=== PATIENT | female | born 1945 | race Caucasian/White ===

== ENCOUNTER 2017-08-17 09:19 | Day surgery (SDC) | payer MEDICARE ==
[~2017-08-17 09:19] MED LIST: Buffered Lidocaine 0.9% SYRIN* 5 ML/SYR SYRINGE INTRADERM ONE; DiMENhydriNATE IV* 50 MG/ML VIAL IV PUSH PRN; Famotidine TAB* 20 MG PO ONE; Gabapentin CAP(*) 300 MG PO ONE; Morphine INJ* 2 MG/ML 1 ML CARPUJECT IV PRN; Naloxone* 0.4 MG/ML 1 ML VIAL IV PRN; PROCHLORPERAZINE INJ 5 MG/ML 2 ML VIAL IV PRN; fentaNYL* 50 MCG/ML 2 ML VIAL (100 MCG VIAL) IV PRN; oxyCODONE/Acetamin 5/325 MG* TAB PO PRN
[2017-08-17] MEDS ORDERED: fentaNYL* 50 MCG/ML 2 ML VIAL (100 MCG VIAL) ONE (09:30)
[2017-08-17] MEDS ORDERED: Gabapentin CAP(*) 300 MG ONE (09:30)
[2017-08-17] MEDS ORDERED: Midazolam* 1 MG/ML 5 ML VIAL (5 MG) ONE (09:30)
[2017-08-17] MEDS ORDERED: Clindamycin 900 MG IVPREMIX(* 900 MG/50 ML SDV IV ONE (09:31)
[2017-08-17] MEDS ORDERED: Famotidine TAB* 20 MG ONE (09:31)
[2017-08-17] MEDS ORDERED: Buffered Lidocaine 0.9% SYRIN* 5 ML/SYR SYRINGE ONE (09:31)
[2017-08-17] MEDS ORDERED: EPINEPHRINE 1 MG/ML 1 ML VIAL ONE (11:21)
[2017-08-17] MEDS ORDERED: Bupivacaine 0.25% SDV* 30 ML ONE (11:21)
[2017-08-17] MEDS ORDERED: Phenylephrine INJ* 10 MG/ML 1 ML VIAL (10 MG) ONE (13:00)
[2017-08-17] MEDS ORDERED: Propofol* 10 MG/ML 20 ML BTL IV PUSH ONE (13:00)
[2017-08-17] MEDS ORDERED: Ondansetron INJ* 2 MG/ML VIAL ONE (13:00)
[2017-08-17] MEDS ORDERED: Dexamethasone IV* 4 MG/ML 1 ML (4 MG) ONE (13:00)
[2017-08-17] MEDS ORDERED: Ketorolac INJ* 30 MG/ML 1 ML VIAL ONE (13:00)
[2017-08-17] MEDS ORDERED: Lidocaine 2% PF * 5 ML VIAL ONE (13:00)
[2017-08-17 17:09] VITALS: BP 159/78
--- NOTE | 2017-08-23 08:16 | OP ---
DR. YAP - PLEASE REIVEW. BLANKS DUE TO EXTREME VOICE DISTORTION DATE OF OPERATION: 08/17/17 - SDS DATE OF : 45 SURGEON: Mike Yap MD CRM DYNAMICS DEVELOPER: DERIK Reyez. A physician assistant sales director was required for the length of the procedure for positioning, assistance with instrumentation, and closure. ANESTHESIOLOGIST: ANESTHESIA: Marilu block anesthesia. PRE-OP DIAGNOSES: 1. Right shoulder rotator cuff tendon tears, massive, retracted, supraspinatus , infraspinatus. 2. Right shoulder subacromial impingement and bursitis. 3. Right shoulder acromioclavicular joint arthritis. 4. Right shoulder loose body. POST-OP DIAGNOSES: 1. Right shoulder rotator cuff tendon tears, massive, retracted, supraspinatus and infraspinatus. 2. Right shoulder subacromial impingement and bursitis. 3. Right shoulder acromioclavicular joint arthritis. 4. Right shoulder proximal biceps long head partial thickness tears. 5. Right shoulder capsulitis. OPERATIVE PROCEDURE: 1. Examination of right shoulder. 2. Manipulation under anesthesia, right shoulder. 3. Right shoulder arthroscopic rotator cuff tendon repair, supraspinatus, infraspinatus, double row. 4. Right shoulder arthroscopic subacromial decompression. 5. Right shoulder arthroscopic distal clavicle resection. 6. Right shoulder arthroscopic limited debridements including release of biceps tendon, debridement of superior labrum, debridement of rotator cuff interval tissue. ANTIBIOTICS: Ancef 2 g IV. IV FLUIDS: 2000 cc crystalloid. URINE OUTPUT: 600 cc. XLKG-GZ-[id number] TIME: 130 minutes. SPECIMEN: None. IMPLANTS: Mitek Gryphon 2 anchors each, 5.5 mm, triple loaded, as well there was 1 knotless Mitek Gryphon anchor, 5.5 mm in size. IRRIGATION: 17 bags, each 3 L for a total of 51 L. COMPLICATIONS: None. ESTIMATED BLOOD LOSS: Minimal. 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 Approximately a year ago, the pain worsened and the patient was over the fall and winter seen by therapist, Nancie Gan. The patient's pain then worsened in April and then she was treated with cortisone injection by Dr. Cody Jimenez. On 07/04/17, the patient had a specific injury while doing yoga. The patient's shoulder pain and weakness increased and she presented to clinic to me after having MRI of the right shoulder. MRI showed retracted tears of the supraspinatus, infraspinatus, all the way to the glenoid. Mild muscle atrophy. Elevation of the humeral head on both x-ray and MRI imaging. A loose body was present about the coracoid. The patient had no complaints of mechanical locking of the shoulder consistent with a symptomatic loose body. To assess the patient's MRI findings, I believe , stated that it was a positive thing that the patient's most severe symptoms , abduct and forward flex [address], she only had . Discussed complications including bleeding, infection, nerve or blood vessel injury, shoulder pain, stiffness, osteoarthritis, rotator cuff retear. DESCRIPTION OF PROCEDURE: The patient was taken to the operating room, placed supine on operating room table. The patient was sedated and intubated. The patient was put in the lateral decubitus position. A boateng bag was placed. ____ _ anesthesia. The patient is forward flexing passively to 180 and external rotation was 90, but her internal rotation was limited. degrees of internal rotation. appropriate amount of forward flexion. Prepped with ChloraPrep, draped. Surgical time-out. I entered the shoulder with a spinal needle from posterior. Injected cc of normal saline. I established a glenohumeral joint portal. Started arthroscopy. at least grade 1 in the shoulder, but no articular cartilage tear encountered . The patient clearly had full thickness tear of supraspinatus and infraspinatus. The patient had some inflamed tissue in the rotator cuff interval. The patient had a very tendinotic biceps tendon groove, partial thickness tears in the . I established anterior portal under direct visualization. I used a topic shaver to , this improved visualization. The biceps tendon is clearly, I believe, needing to be treated. pathology as we, . I fully debrided the loose body, but did not have . lateral visualization. . Debrided and . I grasped, I was able to bring tendon to bone nicely without significant tension. I placed Arthrex plastic cannula anteriorly. I placed one . I debrided the humeral head, debrided . I debrided the humeral head and debrided. With the subacromial decompression __ ___. I placed 8 horizontal mattress stitches in this and I used a combination of tie attempted a lateral row anchor lateral row anchor sutures and medial row. debrided bursitic tissue with VAPR. DISPOSITION: . She will see me in clinic in 10 to 14 days postoperatively for wound check and removal of stitches. [id number] #: [id number] VANESSA
== END 2017-08-17 17:42 | disposition home or self-care (01) ==
LOC: OR 09:19
PROVIDERS: ATTEND Orthopaedic Surgery
DX: S46.011A Strain of muscle(s) and tendon(s) of the rotator cuff of right shoulder, initial encounter (principal); M75.41 Impingement syndrome of right shoulder; M19.011 Primary osteoarthritis, right shoulder; S46.111A Strain of muscle, fascia and tendon of long head of biceps, right arm, initial encounter; X50.0XXA Overexertion from strenuous movement or load, initial encounter; Y93.B9 Activity, other involving muscle strengthening exercises; Y92.9 Unspecified place or not applicable; M77.8 Other enthesopathies, not elsewhere classified; I10 Essential (primary) hypertension; R00.2 Palpitations; I47.1 Supraventricular tachycardia; E78.5 Hyperlipidemia, unspecified; I42.8 Other cardiomyopathies; G89.18 Other acute postprocedural pain
CPT/HCPCS: A9270-GY; J1100; J1885; J2250; J2405; J2704; J3010

== ENCOUNTER 2017-08-19 06:44 | Observation (INO) | payer MEDICARE ==
[2017-08-19] MEDS ORDERED: NS 0.9% 1000 ML* 1,000 ML IV ONE (07:32)
[2017-08-19 07:49] LABS: ABS Basophils 0.1 10^3/ul (0-0.2); ABS Eosinophils 0.2 10^3/ul (0-0.6); ABS Lymphocytes 3.1 10^3/ul (1.0-4.8); ABS Monocytes 0.8 10^3/ul (0-0.8); ABS Neutrophils 7.8 10^3/ul (1.5-7.7); ABS Nucleated RBC 0 10^3/ul; Eosinophil % 1.4 % (0-6); Hematocrit 30 % (35-47); Hemoglobin 10.4 g/dl (12.0-16.0); Lymphocyte % 25.8 % (25-47); Mean Corpuscular HGB Conc 35 g/dl (31-36); Mean Corpuscular Hemoglobin 32 pg (27-31); Mean Corpuscular Volume 93 fL (80-97); Mean Platelet Volume 6.8 um3 (7.4-10.4); Nucleated Red Blood Cells % 0; Platelet Count 252 10^3/ul (150-450); Red Blood Count 3.23 10^6/ul (4.0-5.4); Red Cell Distribution Width 13 % (10.5-15)
[2017-08-19 08:11] LABS: INR 0.86 (0.77-1.02)
--- NOTE | 2017-08-19 08:51 | RAD ---
INDICATION: Postop 3 days following RIGHT shoulder surgery. Unable to raise arm above head. History of cardiovascular disease. COMPARISON: No relevant prior exams available on the [facility] PACS for comparison. TECHNIQUE: Dual energy PA and routine lateral views of the chest were obtained. REPORT: RIGHT larger than LEFT dependent pleural effusions. Proportional basilar atelectasis. Diffuse prominence of interstitial markings and peripheral thickened interlobular septa. Negative for pneumothorax. Upper normal heart size. Mildly ill-defined central pulmonary vasculature. Probable postsurgical change of resection of the distal RIGHT clavicle with overlying soft tissue swelling given the provided history. IMPRESSION: Interstitial pulmonary edema with small RIGHT larger than LEFT dependent pleural effusions.
[2017-08-19 09:17] LABS: EGFR Non-African American 77.1 (>60)
[2017-08-19] MEDS ORDERED: Iodixanol* (CONTRAST) 320 MG/ML 100 ML SDV IV ONE (09:18)
--- NOTE | 2017-08-19 10:00 | RAD ---
INDICATION: Difficulty breathing. History of breast carcinoma. COMPARISON: August 19, 2017 chest radiograph TECHNIQUE: Multidetector CT images were obtained from the lung apices to the upper abdomen with 62 mL Visipaque 320 IV contrast. Pulmonary angiogram protocol. Multiplanar reformation including with maximum intensity projection. REPORT: Small bilateral dependent pleural effusions with proportional basilar atelectasis. Thickened peripheral interlobular septa at the lower lung zones. Negative for thoracic lymphadenopathy. Mild cardiomegaly. Negative for pericardial effusion. Normal diameter thoracic aorta. Negative for aortic dissection. No filling defects are identified from the main to the subsegmental pulmonary arteries to indicate presence of a pulmonary embolism. Unremarkable images through the upper abdomen. Postsurgical change at the RIGHT shoulder including resection of the distal clavicle and surgical anchor from rotator cuff repair. Soft tissue edema about the RIGHT shoulder. Subcutaneous emphysema at the level of the subacromial subdeltoid bursa. Glenohumeral joint effusion. Post LEFT mastectomy and implant reconstruction. Negative for suspicious focal osseous lesions. IMPRESSION: 1. Negative for pulmonary embolism. 2. Interstitial pulmonary edema. Small bilateral dependent pleural effusions with proportional basilar atelectasis. 3. Postsurgical change at the RIGHT shoulder including resection of the distal clavicle and surgical anchor from rotator cuff repair. Soft tissue edema about the RIGHT shoulder. Subcutaneous emphysema at the level of the subacromial subdeltoid bursa. Glenohumeral joint effusion.
[2017-08-19] MEDS ORDERED: Furosemide IV* 10 MG/ML VIAL (40 MG) IV ONE (10:11)
[2017-08-19] MEDS ORDERED: diPHENhydraMINE PO* 25 MG PO PRN (11:13)
[2017-08-19] MEDS ORDERED: Magnesium Sulfate 2 GM IV* 2 GM/50 ML BAG IVPB ONE (11:19)
[2017-08-19] MEDS ORDERED: Acetaminophen TAB* 325 MG PO PRN (11:21)
[2017-08-19] MEDS ORDERED: Ondansetron INJ* 2 MG/ML VIAL IV PRN (11:40)
[2017-08-19] MEDS ORDERED: Ondansetron ODT TAB* 4 MG ONE (11:41)
[2017-08-19] MEDS ORDERED: Ondansetron ODT TAB* 4 MG PO ONE (11:42)
[2017-08-19] MEDS ORDERED: oxyCODONE/Acetamin 5/325 MG* TAB PO PRN (12:30)
[2017-08-19] MEDS: Aspirin TAB* 325 MG PO SCH (12:32)
[2017-08-19] MEDS: Atenolol TAB* 25 MG PO SCH ×2 (12:32→20:51)
[2017-08-19] MEDS: Enoxaparin(*) 40 MG/0.4 ML SYR SUBCUT SCH (12:33)
[2017-08-19] MEDS: FISH OIL PO SCH ×2 (12:33→22:08)
[2017-08-19] MEDS: FATTY ACIDS PO SCH ×2 (12:33→22:08)
[2017-08-19] MEDS: [UNRECOGNIZED DRUG - OTHER] PO SCH (12:33)
[2017-08-19] MEDS: OMEGA PO SCH ×2 (12:33→22:08)
[2017-08-19] MEDS: GLUCOSAMINE PO SCH (12:33)
[2017-08-19] MEDS: CHONDROITIN PO SCH (12:33)
[2017-08-19] MEDS: Furosemide IV* 10 MG/ML 2 ML VIAL (20 MG) IV SCH (14:32)
--- NOTE | 2017-08-19 15:51 | HP ---
HISTORY AND PHYSICAL: DATE OF ADMISSION: 08/19/17 ADMITTING PROVIDER: Jose Manuel Goodwin MD PRIMARY CARE PROVIDER: Dr. Gilbert Hooks. OUTPATIENT METAL SPRAYER PRODUCTION: Dr. Rosa Guy. CHIEF COMPLAINT: Shortness of breath. HISTORY OF PRESENT ILLNESS: Leeann Steward is a 72-year-old female with past medical history of left ventricular outflow tract obstruction; osteoporosis; diverticulitis; DCIS; hypertension; right rotator cuff tear, status post recent repair with Dr. Ivey on 08/17/17, two days prior to admission. She was in her usual state of present health. The night prior to admission when she lied down, she felt short of breath, could not take a deep breath, felt like she had slight wheeze, had a desire to cough, but when she tried, it was not productive. She felt a slight "squeaking" sound in her lungs with deep breath. She eventually would try to sit up in the chair given her recent surgery but the sensation continued and presented to the [facility] for further evaluation. She was found to have an elevated BNP of 825 and chest x-ray with interstitial pulmonary edema, small, right greater than left pleural effusion. She has got a D-dimer elevation of 334. So, a CT chest angiogram was performed by emergency room which did not show any evidence of pulmonary embolism, which showed additional evidence of interstitial pulmonary edema, small bilateral dependent pleural effusions with proportional basilar atelectasis. She initially got 1 L of normal saline in the ED and was then given 40 of IV Lasix. Referred to hospitalist service for CHF exacerbation (newly diagnosed). Of note, she did have Cardiology consultation prior to her surgery given her history of LVOT. Last echo was about 2010 in our system with preserved ejection fraction. She also had a JORDYN, which did not show any evidence of patent ductus arteriosus. At that time, she had mild mitral valve regurgitation and trace other valvular abnormalities. Dr. Guy had recommended keeping well hydrated and per the patient's report, she received generous IV fluids perioperatively, although she does not know exactly how much. 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 She said she weighed 108 two days ago. Weight is still pending here. She denies any chest pain, chest tightness, fevers, chills, nausea, vomiting. Last bowel movement was 2 days ago. No sick contacts. She is a never smoker, has a history of hyperlipidemia, not on statin and history of heart disease in her father. She attests to occasional palpitations, skipped beats, not recently. PAST MEDICAL HISTORY: LVOT; diverticulitis; osteoporosis; DCIS; hypertension; right rotator cuff tear, status post repair, 08/17/17. MEDICATIONS: Include: 1. Percocet 1 tab p.o. q.4-6 hours p.r.n. 2. Benadryl 25 mg p.o. q.h.s. p.r.n. 3. Aspirin 325 mg p.o. b.i.d. 4. Atenolol 12.5 mg p.o. b.i.d. 5. Fosamax (alendronate) 70 mg p.o. weekly. 6. [place]-3 fatty acids/fish oil 1 capsule p.o. b.i.d. 7. Glucosamine, chondroitin, collagen, hyaluronic acid 1 capsule p.o. q.a.m. 8. Calcium carbonate/vitamin D3 one tab p.o. b.i.d. ALLERGIES: AMOXICILLIN (rash), METOPROLOL (heartburn). FAMILY HISTORY: Father was found down age 73 with some suspicion for CHF or other heart problems. Mother at age 50 of colon cancer. Two maternal aunts of cervical cancer at age 29 and 60 respectively. 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 She is accompanied by her and medical surrogate decision maker, Papito Raphael. She occasionally drinks 1 glass of wine on the weekends, but none recently. She is a never smoker. REVIEW OF SYSTEMS: A complete 14-point review of systems is negative except as per HPI. PHYSICAL EXAMINATION GENERAL APPEARANCE: No acute distress and just walked without oxygen from the rest room. VITAL SIGNS: Temperature 97.7; pulse rate of 72; respiratory rate 16 to 20; initially satting 95% on room air after she got the 1 L of fluid, she got down to 88% on room air, then last recorded was 95% on 2 L; blood pressure was 126/ 85. HEENT: Normocephalic, atraumatic. Pupils equal, round, and reactive to light. No scleral icterus. Mucous membranes are moist. NECK: Supple. No cervical lymphadenopathy. PULMONARY: Bilateral rales at bases. No rhonchi or wheezing. CARDIOVASCULAR: Regular rate and rhythm. No murmurs, rubs, or gallops. ABDOMEN: Soft, nontender, nondistended. No peritoneal signs, no rebound or guarding. EXTREMITIES: Warm, well perfused. No peripheral edema. Right shoulder in a sling and Dante bandages. NEUROLOGIC: Cranial nerves II through XII grossly intact. Thread Cutter strength is 5/ 5 bilaterally. Moving all extremities. Sensation is intact. SKIN: No lesions, no rashes. DIAGNOSTIC STUDIES/LAB DATA: White count 12.0, hemoglobin 10.4, hematocrit 30 , platelets 252, MCV 93. INR 0.86, D-dimer 334. Sodium 130, potassium 3.8, chloride 95, carbon dioxide 25, BUN 13, creatinine 0.74, glucose 106, lactic acid 0.9, magnesium 1.8. Total bili is 0.7, AST 30, ALT 18, alk phos 51. Troponin 0.01. BNP 825. Chest x-ray, PA and lateral, 2 views: With interstitial pulmonary edema, small , right larger than left dependent pleural effusions. CT chest angiogram with no pulmonary embolism. There was interstitial pulmonary edema, small bilateral dependent pleural effusions with proportional basilar atelectasis and postsurgical changes of the right shoulder. Her EKG had -wave inversions in III and V1; PACs. Normal axis, normal intervals. QTc of 477. Also T-wave inversion in III. We have no prior EKG to compare to. Tried to obtain records from Dr. Guy's office. ASSESSMENT AND PLAN: Leeann Steward is a 72-year-old female with past medical history of LVOT, the last echo 2010 with recent reported IV hydration for her right rotator cuff surgery and then additional 1 L in the emergency room here. She is presenting with lab and imaging abnormalities concerning for acute congestive heart failure exacerbation with BNP of 825 and interstitial edema and pleural effusions, although small. She is status post 40 of IV Lasix here. We will continue 20 IV b.i.d. at 8 and 3 p.m. daily, get strict I's and O 's, daily weights, repeat a transthoracic echocardio-gram, last was 2010. Concern for potential diastolic dysfunction but also have to rule out ischemic cardiomyopathy or valvular changes. Her initial troponin was 0.01. She is without chest pain. We will continue her atenolol 12.5 mg b.i.d. Keep her on telemetry monitoring. We will repeat her magnesium to above 2. Her right shoulder pain is well controlled. We will continue her Percocet as needed. Tylenol p.r.n. and aspirin and we will reduce to 324 mg daily from b.i.d. Continue the heart healthy diet. She is being admitted to observation status. She is a full code. Medical surrogate is her , Papito Raphael. She will get Lovenox for DVT prophylaxis. We are going to add on a lipid panel given Dr. Guy's note of elevated LDL in the past. [id number]/[facility] #: [id number] VANESSA
[2017-08-20 05:41] LABS: ABS Basophils 0 10^3/ul (0-0.2); ABS Eosinophils 0.2 10^3/ul (0-0.6); ABS Lymphocytes 2.5 10^3/ul (1.0-4.8); ABS Monocytes 0.9 10^3/ul (0-0.8); ABS Neutrophils 5.1 10^3/ul (1.5-7.7); ABS Nucleated RBC 0 10^3/ul; Hematocrit 29 % (35-47); Hemoglobin 10.3 g/dl (12.0-16.0); Lymphocyte % 28.9 % (25-47); Mean Corpuscular HGB Conc 35 g/dl (31-36); Mean Corpuscular Hemoglobin 33 pg (27-31); Mean Corpuscular Volume 92 fL (80-97); Mean Platelet Volume 6.9 um3 (7.4-10.4); Nucleated Red Blood Cells % 0; Platelet Count 238 10^3/ul (150-450); Red Blood Count 3.16 10^6/ul (4.0-5.4); Red Cell Distribution Width 13 % (10.5-15); White Blood Count 8.7 10^3/ul (3.5-10.8)
[2017-08-20 05:57] LABS: EGFR Non-African American 64.9 (>60)
[2017-08-20] MEDS: Furosemide IV* 10 MG/ML 2 ML VIAL (20 MG) IV SCH (08:36)
[2017-08-20] MEDS: Aspirin TAB* 325 MG PO SCH (08:36)
[2017-08-20] MEDS: Atenolol TAB* 25 MG PO SCH (08:36)
[2017-08-20] MEDS: FISH OIL PO SCH (08:43)
[2017-08-20] MEDS: GLUCOSAMINE PO SCH (08:43)
[2017-08-20] MEDS: OMEGA PO SCH (08:43)
[2017-08-20] MEDS: [UNRECOGNIZED DRUG - OTHER] PO SCH (08:43)
[2017-08-20] MEDS: FATTY ACIDS PO SCH (08:43)
[2017-08-20] MEDS: CHONDROITIN PO SCH (08:43)
[2017-08-20 09:39] VITALS: BP 148/68
--- NOTE | 2017-08-20 11:11 | ED ---
Jeannette Liu Edward, scribed for Tam Quintana MD on 08/19/17 at 0728 . Shortness of Breath - HPI Summary HPI Summary: 72 y/o female presents to the ED c/o SOB starting last night. Pt states it is aggravated with deep breaths. Pt denies any SOB now. Pt bothered with SOB during sleep. Associated sx: wheezing last night. Denies CP. Sx 2 nights ago - R rotator cuff repair, mastecomy. PMHx constriction in heart. Denies history of CT, HTN, DM. - History of Current Complaint Chief Complaint: EDShortnessOfBreath Time Seen by Provider: 08/19/17 07:16 Hx Obtained From: Patient Onset/Duration: Lasting Hours, Resolved Aggrevating Factors: Deep Breaths Alleviating Factors: Nothing Associated Signs & Symptoms: Wheezing - Allergy/Home Medications Allergies/Adverse Reactions: Allergies Allergy/AdvReac Type Severity Reaction Status Date / Time amoxicillin Allergy Rash Verified 08/19/17 06:50 metoprolol Allergy Heartburn Verified 08/19/17 06:50 Home Medications: Home Medications Aspirin TAB* [Aspirin 325 MG TAB*] 650 mg PO BID 08/19/17 [History Confirmed ] diPHENhydraMINE PO* [Benadryl PO 25 MG TAB*] 25 mg PO BEDTIME PRN 08/19/17 [ History Confirmed 08/19/17] oxyCODONE/Acetamin 5/325 MG* [Percocet 5/325 TAB*] 1 tab PO .Q4-6H PRN 08/19/17 [History Confirmed 08/19/17] PMH/Surg Hx/FS Hx/Imm Hx Previously Healthy: No Endocrine/Hematology History: Denies: Hx Diabetes Cardiovascular History: Reports: Other Cardiovascular Problems/Disorders - PVC'S Denies: Hx Hypertension, Hx Pacemaker/ICD History: Denies: Hx Renal Disease Musculoskeletal History: Reports: Hx Osteoporosis, Other Musculoskeletal History - RIGHT SHOULDER INJURED FROM REPETIVE USE Sensory History: Reports: Hx Contacts or Glasses - GLASSES Denies: Hx Hearing Aid Opthamlomology History: Reports: Hx Contacts or Glasses - GLASSES Psychiatric History: Denies: Hx Panic Disorder - Cancer History Cancer Type, Location and Year: LT BREAST - 1998 MASTECTOMY Hx Chemotherapy: No Hx Radiation Therapy: No - Surgical History Surgery Procedure, Year, and Place: LASER - EYE SURG. LT MASTECTOMY ( PRIOR - BX AND LUMPECTOMIES) Hx Anesthesia Reactions: Yes - VERY SEDATED Infectious Disease History: No Infectious Disease History: Denies: Traveled Outside the [place] in Last 30 Days - Family History Known Family History: Positive: Unknown - Social History Alcohol Use: Weekly Alcohol Amount: 2 GLASSES WINE/WEEK Substance Use Type: Reports: None Smoking Status (MU): Never Smoked Tobacco Have You Smoked in the Last Year: No Review of Systems Constitutional: Negative Eyes: Negative ENT: Negative Cardiovascular: Negative Positive: Shortness Of Breath, Other - wheezing Gastrointestinal: Negative Genitourinary: Negative Musculoskeletal: Negative Skin: Negative Neurological: Negative Psychological: Normal All Other Systems Reviewed And Are Negative: Yes Physical Exam - Summary Physical Exam Summary: GENERAL: ~Patient is a well developed and nourished F who is lying comfortable in the stretcher. ~Patient is not in any acute respiratory distress. HEAD AND FACE: Normocephalic EYES: PERRLA, EOMI x 2. EARS: Hearing grossly intact. MOUTH: Oropharynx within normal limits. NECK: Supple, trachea is midline, no adenopathy, no JVD, no carotid bruit. CHEST: Symmetric, no tenderness at palpation LUNGS: Bilateral crackles at her bases. CVS: Regular rate and rhythm, S1 and S2 present, no murmurs or gallops appreciated. ABDOMEN: Soft, non-tender. Bowel sounds are normal. No abdominal abnormal pulsations. EXTREMITIES: Full ROM in all major joints, no edema, no cyanosis or clubbing. NEURO: Alert and oriented x 3. No acute neurological deficits. Speech is normal and follows commands. SKIN: Dry and warm Triage Information Reviewed: Yes Vital Signs On Initial Exam: Initial Vitals Temp Pulse Resp BP Pulse Ox 97.7 F 79 20 144/76 95 08/19/17 06:46 08/19/17 06:46 08/19/17 06:46 08/19/17 06:46 08/19/17 06:46 Vital Signs Reviewed: Yes Diagnostics - Vital Signs Vital Signs Temp Pulse Resp BP Pulse Ox 08/19/17 06:46 97.7 F 79 20 144/76 95 - Laboratory Result Diagrams: 08/19/17 07:40 08/19/17 07:40 Lab Statement: Any lab studies that have been ordered have been reviewed, and results considered in the medical decision making process. - Radiology CXR Xray Interpretation: Positive (See Comments) - Interstitial pulmonary edema with small RIGHT larger than LEFT dependent pleural effusions. Radiology Interpretation Completed By: Radiologist - ED PHYSICIAN REVIEWS AND AGREES - CT CHEST/THORAX CTA CT Interpretation: Positive (See Comments) - 1. Negative for pulmonary embolism. 2. Interstitial pulmonary edema. Small bilateral dependent pleural effusions with proportional basilar atelectasis. 3. Postsurgical change at the RIGHT shoulder including resection of the distal clavicle and surgical anchor from rotator cuff repair. Soft tissue edema about the RIGHT shoulder. Subcutaneous emphysema at the level of the subacromial subdeltoid bursa. Glenohumeral joint effusion. CT Interpretation Completed By: Radiologist - EKG 1 EKG Interpretation: 07:45 - NSR @ 80 BPM. Atrial premature complexes Course/Dx - Course Assessment/Plan: 72 y/o female presents to the ED with SOB s/p rotator cuff sx. On arrival pt found hypoxic at 88 % room air. Placed on 2 L O2. Workup remarkable for interstitial pulmonary edema and pleural effusion. CTA chest shows no PE. BNP elevated 825, suspect pt developed CHF. Pt given Lasix 40 mg IV and subsquently admitted to Dr. Goodwin, who accepted the pt. Pt initially ordered for iv fluids but after we discovered chf it was discontinued. - Diagnoses Provider Diagnoses: Pulmonary edema - Physician Notifications Discussed Care of Patient With: Jose Manuel Goodwin Time Discussed With Above Provider: 10:25 Instructed by Provider To: Admit As Inpatient Discharge - Sign-Out/Discharge Documenting (check all that apply): Discharge/Admit/Transfer - Discharge Plan Condition: Stable Disposition: ADMITTED TO [facility] Referrals: Gilbert Hooks MD [Primary Care Provider] - The documentation as recorded by the Jeannette desai Edward accurately reflects the service I personally performed and the decisions made by me, Tam Quintana MD.
--- NOTE | 2017-08-20 11:28 | ECHO ---
Patient: KANDIS ALAS [facility] Rec#: [id number] : 1945 Date: 08/20/2017 Age: 72y Height: 157.48 cm / 62.0 in Weight: 48.99 kg / 108.0 lbs Sex: F BSA: 1.47 Room#: 432 Admit Date#: 08/19/2017 Type: Inpatient Referring: Jose Manuel Goodwin Reading: Trung Wilkins MD Barrel Lathe Operator Inside: Karla Lima,KEVINCS,RDMS CC: Gilbert Hooks MD Transthoracic Echocardiogram Indication: Respiratory abnormality, CHF BP: 133/46 HR: 75 Rhythm: NSR Findings History: LVOT obstruction, HTN, breast cancer Technical Comments: The study quality is good. Left Ventricle: The left ventricular chamber size is decreased. Basal interventricular septum shows moderate thickening. Global left ventricular wall motion and contractility are within normal limits. There is normal left ventricular systolic function. The estimated ejection fraction is 60-65%. There is no consistent Doppler evidence of clinically significant diastolic dysfunction. Left Atrium: The left atrial chamber size is normal. Right Ventricle: The right ventricular chamber size and systolic function are within normal limits. The right ventricle wall thickness is mildly increased. Right Atrium: The right atrial cavity size is normal. Aortic Valve: The aortic valve is trileaflet. The aortic valve leaflets are mildly thickened. Systolic excursion of the aortic valve is normal. There is no evidence of aortic regurgitation. There is no evidence of aortic stenosis. Mitral Valve: The mitral valve leaflets appear normal. There is no evidence of mitral regurgitation. There is no evidence of mitral stenosis. Tricuspid Valve: The tricuspid valve leaflets are normal. There is mild tricuspid regurgitation. There is evidence of mild pulmonary hypertension. Pulmonic Valve: The pulmonic valve appears normal. There is a trace pulmonic regurgitation. Pericardium: There is no significant pericardial effusion. Aorta: The aortic root appears normal. There is no dilatation of the aortic arch. Pulmonary Artery: The main pulmonary artery is not well visualized. Venous: The inferior vena cava appears normal in size. There is a greater than 50% respiratory change in the inferior vena cava dimension. Summary: There are no significant changes when compared to the previous study done on 08/02/10 Conclusions Global left ventricular wall motion and contractility are within normal limits. There is normal left ventricular systolic function. The estimated ejection fraction is 60-65%. The right ventricular chamber size and systolic function are within normal limits. There is no evidence of aortic stenosis. There is no evidence of aortic regurgitation. There is no evidence of mitral regurgitation. There is mild tricuspid regurgitation. There is no significant pericardial effusion. There are no significant changes when compared to the previous study done on 08/02/10 Measurements Name Value Normal Range RVIDd (AP) 2D 2.4 cm (0.9 - 2.6) RVDdMajor (2D) 3.3 cm (2.2 - 4.4) RAd ISD 4CH 4.6 cm (3.4 - 4.9) RA (A4C)W 3.7 cm (2.9 - 4.6) IVSd (2D) 1.3 cm (0.6 - 1) LVPWd (2D) 1 cm (0.6 - 1) LVIDd (2D) 3.1 cm (3.6 - 5.4) LVIDs (2D) 1.5 cm - LV FS (2D) 51 % (25 - 45) Aortic Annulus 2 cm (1.4 - 2.6) Ao root diameter (2D) 2.8 cm (2.1 - 3.5) Ascending Ao 2.7 cm (2.1 - 3.4) Aortic arch 2.4 cm (1.8 - 3.4) LA dimension (AP) 2D 3.3 cm (2.3 - 3.8) LAd ISD 4CH 5.3 cm (2.9 - 5.3) LA ISD 4CH W 3.9 cm (2.5 - 4.5) Name Value Normal Range LA ESV SP 4CH (A/L) 45.52 ml - LA ESV SP 2CH (A/L) 78.08 ml - LA ESV BP (A/L) 62.57 ml - LA ESV SP 4CH (MOD) 41.38 ml - LA ESV SP 2CH (MOD) 73.23 ml - Name Value Normal Range MV E-wave Vmax 0.9 m/sec - MV deceleration time 245 msec - MV A-wave Vmax 0.7 m/sec - MV E:A ratio 1.3 ratio - P. vein S-wave Vmax 0.4 m/sec - P. vein D-wave Vmax 0.4 m/sec - P. vein S:D Vmax ratio 0.9 ratio - P. vein A-wave duration 121.1 msec - LV septal e' Vmax 0.06 m/sec - LV lateral e' Vmax 0.05 m/sec - LV E:e' septal ratio 15 ratio - LV E:e' lateral ratio 18 ratio - Name Value Normal Range AV Vmax 1.6 m/sec - AV VTI 37.7 cm - AV peak gradient 10 mmHg - AV mean gradient 5.7 mmHg - LVOT Vmax 1.6 m/sec - LVOT VTI 36.4 cm - LVOT peak gradient 10 mmHg - LVOT mean gradient 6.2 mmHg - YOLIE Vmax 0.7 m/sec - Name Value Normal Range TR Vmax 2.9 m/sec - TR peak gradient 34 mmHg - RAP 3 mmHg - RVSP 37 mmHg - IVC diameter 1.4 cm - Name Value Normal Range PV Vmax 0.8 m/sec - PV peak gradient 2.6 mmHg -
[2017-08-20] MEDS: Enoxaparin(*) 40 MG/0.4 ML SYR SUBCUT SCH (12:03)
--- NOTE | 2017-08-21 01:30 | DS ---
DISCHARGE SUMMARY: DATE OF ADMISSION: 08/19/17 DATE OF DISCHARGE: 08/20/17 ADMITTING AND ATTENDING PROVIDER: Jose Manuel Goodwin MD OUTPATIENT ASSEMBLER FLUORESCENT LIGHTS: Rosa Guy MD PRIMARY CARE PROVIDER: Gilbert Hooks MD CHIEF COMPLAINT: Shortness of breath. PRINCIPAL DIAGNOSIS: Acute congestive heart failure exacerbation (new). 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 Ivey on 08/17/17. Two days prior to admission, she had gotten presurgical clearance from Dr. Hooks and Dr. Guy, the latter recommended staying well hydrated given her history of left ventricular outflow tract obstruction. The patient reports she had gotten some degree of IV fluids drained perioperatively, but cannot state how much. The night prior to admission, she felt short of breath upon lying down, could not take a deep breath, felt like she had a slight wheeze with a desire to cough, but was nonproductive. The sensation continued in the morning and she presented [place] [facility] [place] and was found to have an elevated BNP of 825. A chest x-ray and CT chest angiogram obtained (given mildly elevated D-dimer of 334). They both showed evidence of pulmonary edema and small bilateral dependent pleural effusions. She had gotten 1 L of normal saline initially in the ED and then was given 40 mg IV Lasix per the hospitalist service for her CHF exacerbation that was newly diagnosed. She had an echocardiogram last done in 2010 which showed preserved ejection fraction, significant valvular disease and no consistent evidence of diastolic dysfunction. There was mild tricuspid regurgitation. No wall motion abnormalities. She had negative troponins, no ischemic changes on EKG. She got another 20 of IV Lasix within hospital day #1 and again on the morning of hospital day #2. Her weights on admission were 53.38 kg (117 pounds) above her normal weight of 105. On discharge, it was 50.9 kg (119 pounds). She was on room air with resolved shortness of breath. She is being discharged with p.r.n. Lasix 20 mg daily with suggestion to record weights and cut off with any increase of 3 pounds in 1 day or 5 pounds in 1 week. She should follow up with Dr. Guy and Dr. Hooks. CT angiogram did not show any evidence of pulmonary embolism. DISCHARGE MEDICATIONS: 1. Fosamax 70 mg p.o. weekly. 2. Aspirin 650 mg p.o. b.i.d. 3. Atenolol 12.5 mg p.o. b.i.d. 4. Calcium carbonate/vitamin D3, 1 each p.o. b.i.d. 5. Lasix 20 mg p.o. daily p.r.n. for increase in weight, lower extremity edema and shortness of breath. 6. Glucosamine and chondroitin 1 capsule p.o. q.a.m. 7. [place]-3 fatty acid/fish oil 1 capsule p.o. b.i.d. 8. Percocet 1 tablet p.o. q.4 to 6 hours p.r.n. DISCHARGE DIET: Heart healthy. ACTIVITY: On arrival, the patient presented in a sling with the right shoulder. Please follow previous instructions from Dr. Ivey's office. FOLLOWUP: Follow up with Dr. Hooks within 3 to [address] Rosa Guy within 1 to 2 weeks. TIME SPENT: Time spent on discharge, 35 minutes. [id number]/[facility] #: [id number] MTDD
== END 2017-08-20 13:30 | disposition home or self-care (01) ==
LOC: ED 06:44 → MEDTELE 10:37 → INTOOBSV 10:37
PROVIDERS: ADMIT Internal Medicine; ATTEND Internal Medicine
DX: I50.9 Heart failure, unspecified (principal); Z79.82 Long term (current) use of aspirin; I10 Essential (primary) hypertension; R06.2 Wheezing; J81.1 Chronic pulmonary edema
CPT/HCPCS: 36415; 71046; 71275; 80048; 80053; 80061; 83605; 83735; 83880; 84484; 85025; 85379; 85610; 85730; 93005; 93306; 99283; A9270-GY; G0378; J1650; J1940; J3475; Q9967